=== PATIENT | male | born 1940 | race Caucasian/White ===

== ENCOUNTER 2017-02-11 17:51 | Emergency (ER) | payer MEDICARE ==
[2017-02-11 18:19] LABS: BASOPHIL 0.1 % (0-2); EOSINOPHIL 1.1 % (0-7); HCT 29.5 % (42.0-52.0); HGB 9.2 g/dl (13.2-18.0); LYMPHOCYTE 11.7 % (15-48); MCH 29.5 pg (25.0-31.0); MCHC 31.2 g/dL (32.0-36.0); MCV 94.6 fL (78.0-100.0); MONOCYTE 10.3 % (0-12); MPV 9.4 fL (6.0-9.5); NEUTROPHIL 76.8 % (41-80); PLT 187 K/uL (150-400); RBC 3.12 M/uL (4.70-6.00); RDW 15.3 % (11.5-14.0); WBC 7.5 K/uL (4.0-10.5)
[2017-02-11 18:31] LABS: ALBUMIN 4.1 g/dL (3.4-4.8); BILIRUBIN - TOTAL 0.2 mg/dL (0.1-1.0); CREATININE 1.1 mg/dL (0.7-1.2); GLOBULIN (CALCULATION) 3.5 g/dL (2.2-4.2); POTASSIUM 4.3 mmol/L (3.5-5.1); TOTAL PROTEIN 7.6 g/dL (6.4-8.3)
[2017-02-11 21:17] LABS: BILIRUBIN NEGATIVE (NEGATIVE); BLOOD NEGATIVE Ery/uL (NEGATIVE); CLARITY CLEAR (CLEAR); COLOR YELLOW (YELLOW); GLUCOSE (U) NORMAL (NORMAL); KETONE (U) NEGATIVE (NEGATIVE); LEUKOCYTES NEGATIVE Leu/uL (NEGATIVE); NITRITE NEGATIVE (NEGATIVE); PROTEIN TRACE (LOW) mg/dL (NEGATIVE); UROBILINOGEN 0.2 mg/dL (0.2-1.0)
== END 2017-02-11 23:46 | disposition home or self-care (01) ==
LOC: FER 17:51
PROVIDERS: Internal Medicine
DX: R55 Syncope and collapse (principal); R06.02 Shortness of breath; I49.3 Ventricular premature depolarization; E27.1 Primary adrenocortical insufficiency; Z85.819 Personal history of malignant neoplasm of unspecified site of lip, oral cavity, and pharynx; Z87.891 Personal history of nicotine dependence; Z88.0 Allergy status to penicillin; Z88.5 Allergy status to narcotic agent; Z79.899 Other long term (current) drug therapy
CPT/HCPCS: 36415; 36600; 71010; 80053; 81003; 82803; 83605; 84484; 85025; 85379; 93005; J2930